=== PATIENT | female | born 1960 | race Caucasian/White ===

== ENCOUNTER 2017-04-18 17:54 | Emergency (ER) | payer OTHER ==
[~2017-04-18] VITALS: Ht 175.3 cm; Wt 97.7 kg
[2017-04-18 17:57] VITALS: BP 122/81; PULSE 83; RESP 16; O2SAT 97
--- NOTE | 2017-04-18 18:05 | ED.REPORT ---
HPI-Extremity Problem Upper Date of Service April 18, 2017 ED Provider: Dr. Faustin Pt is a healthy 57 year old female who presents to the ED with concerns for a R hand injury that occurred immediately prior to arrival. She reports that she was walking up some stairs with a mirror when she tripped and the mirror fell and broke in her hand. She denies any rinsing or cleaning of the wound. She denies any LOC or trauma to her head upon the fall. Pt reports that she notices pieces of the glass remaining in her hand. She has no other complaints. Her tetanus is not up to date. Nursing Notes Stated Complaint: CUT LEFT HAND Chief Complaint: Extremity Trauma Nursing Notes Reviewed: Yes Allergies: Coded Allergies: No Known Allergies (Unverified , 04/18/17) General Time Seen by MD: 18:04 Chief Complaint Hand injury right Hx Obtained From: Patient Arrived By: Walk-in Onset Occurred: Just prior to arrival Symptom Duration: Since onset Caused by: Accidental Location: : Hand right Severity: Current: Mild Severity: Maximum: Moderate Immunizations: Tetanus not up to date Similar Sx Previous: Yes Past Medical History Past Medical History Healthy Ambulatory Status Independent Review of Systems Constitutional: Denies: Chills, Fever, Malaise, Weakness - generalized Musculoskeletal: Reports: Extremity pain Skin: Denies Diaphoresis Neurologic: Denies: Change LOC, Dizziness Complete sys rev & neg: except as marked. Physical Exam Initial Vital Signs Vital Signs (First) Date Time Temp Pulse Resp B/P Pulse Ox O2 Delivery O2 Flow Rate FiO2 04/18/17 17:57 36.1 83 16 122/81 97 Room Air Initial VS: Reviewed General/Constitutional: Well-developed, Well-nourished Head / Eyes: Atraumatic, Normocephalic, PERRL ENT: Mucous membranes moist, Conjunctiva normal, No scleral icterus Neck: Supple, Non-tender, Full range of motion Respiratory: Breath sounds normal, Clear to auscultation, No respiratory distress Cardiovascular: Regular rate & rhythm, Heart sounds normal, Intact distal pulses Abdomen / GI: Soft, Non-tender, No guarding, No rebound, No distention Skin: Warm, Dry, No cyanosis Neurologic: Alert, Oriented, Nonfocal Wrist / Hand: Neurologic intact, Vascular intact Multiple lacerations about the R palm Full flexion and extension Stength 5/5 Feels like there is glass still present in her hand Interpretation & Diagnostics X-Ray Interpretation Xray Interpretation: IMPRESSION: No radiodense foreign bodies identified by plain film radiograph. Dictated by: Jo Clark MD, PhD on 04/18/2017 at 19:36 X-Ray Ordered: Hand right Interpretation / Wet Read by: Interpret - Radiologist Re-Eval/Medical Decision Med Decision/Clinical Course multiple superficial wounds. Nothing to close. Will clean and remove glass and dress wounds. Source of Hx: Old records Re-Evaluation/Progress : Time of Eval: 19:31 Re-Evaluation/Progress Note: Pt is rechecked and informed of her diagnosis and the plan to discharge her at this time. She understands and agrees, all questions are addressed. Counseled Regarding: Diagnosis, Lab results, Need for follow-up, When/why to return to ED Discharge & Departure Impression: Primary Impression: Laceration Disposition: Home Discharge Condition All VS Reviewed: Yes Condition: Stable Patient Instructions: Acute Wound Care (ED) Additional Instructions: Keep your wound clean and dry, apply the mupirocin ointment to your wounds 3x daily. (you can also use this ointment for your face) Take ibuprofen as needed for pain. Follow up with your primary care provider next week. Return to the emergency department with any sings of infection or any new or worsening symptoms. Scribe Attestation Portions of this note were transcribed by Marleni Corbin. I, Dr. Faustin personally performed the history, physical exam and medical decision-making; I reviewed and confirmed the accuracy of the information in the transcribed note. Signed by: Ashleigh Ruvalcaba, 04/18/2017 19:40 Nacho Faustin DO April 18, 2017 18:05 JILLIAN CORBIN April 18, 2017 18:26
--- NOTE | 2017-04-18 19:38 | DRSVH ---
PROCEDURE: X-RAY RIGHT HAND, TWO VIEWS ([id number]) INDICATIONS: poss glass in mult lac. TECHNIQUE: 2 views of the hand(s) acquired. COMPARISON: None. FINDINGS: Bones: No fractures or dislocations. Carpal bones are normally aligned. No suspicious bony lesions . Soft tissues: No suspicious soft tissue calcifications. No radiodense foreign bodies. IMPRESSION: No radiodense foreign bodies identified by plain film radiograph. Dictated by: Jo Clark MD, PhD on 04/18/2017 at 19:36 Approved by: Jo Clark MD, PhD on 04/18/2017 at 19:36
[2017-04-18] MEDS ORDERED: Mupirocin 2% 22 Gm Ointment TOPICAL ONE (19:40)
[2017-04-18] MEDS ORDERED: TdaP Vaccine 0.5 mL Inj IM ONE (19:45)
== END 2017-04-18 20:38 | disposition home or self-care (01) ==
LOC: SED 17:54
DX: S61.421A Laceration with foreign body of right hand, initial encounter (principal); W25.XXXA Contact with sharp glass, initial encounter; Y93.01 Activity, walking, marching and hiking; Y92.009 Unspecified place in unspecified non-institutional (private) residence as the place of occurrence of the external cause; Y99.8 Other external cause status; Z23 Encounter for immunization